=== PATIENT | female | born 1980 | race Caucasian/White ===

== ENCOUNTER 2017-11-19 10:37 | Emergency (ER) | payer BC ==
[2017-11-19 10:52] VITALS: TEMP 98.3; BMI 35.5
[2017-11-19] MEDS ORDERED: ACETAMINOPHEN 1000 MG/100 ML VIAL (NON FORMULARY) IVPB ONE (11:10)
[2017-11-19] MEDS ORDERED: SODIUM CHLORIDE 1,000 ML IV STA (11:10)
[2017-11-19] MEDS ORDERED: METOCLOPRAMIDE HCL INJECTION 10 MG/2 ML VIAL IVPB ONE (11:10)
--- NOTE | 2017-11-19 11:20 | PDOC ---
History of Present Illness - General Chief Complaint: Back Pain Stated Complaint: BACK PAIN Time Seen by Provider: 11/19/17 10:59 History Source: Patient - History of Present Illness Occurred: reports: this morning Severity: reports: severe Pain Location: reports: back Past History - Past Medical History Allergies/Adverse Reactions: Allergies Allergy/AdvReac Type Severity Reaction Status Date / Time No Known Allergies Allergy Verified 11/19/17 06:35 Home Medications: Ambulatory Orders Citalopram Hydrobromide [Citalopram HBr] 10 mg PO DAILY 11/19/17 Ferrous Sulfate [Iron] 1 tab PO DAILY 11/19/17 Vit/Iron Fum/Folic AC [ Tablet] 1 tab PO DAILY 11/19/17 COPD: No - Suicide/Smoking/Psychosocial Hx Smoking History: Former smoker Have you smoked in the past 12 months: No Information on smoking cessation initiated: No Hx Alcohol Use: No Drug/Substance Use Hx: No Review of Systems - Review of Systems Constitutional: No: Chills, Fever, Unexplained wgt Loss Respiratory: No: Shortness of Breath Cardiac (ROS): No: Chest Pain, Lightheadedness, Palpitations, Syncope ABD/GI: Yes: Nausea, Vomiting. No: Abdominal cramping : No: Burning, Dysuria, Discharge, Hematuria Musculoskeletal: Yes: Back Pain. No: Neck Pain Neurological: No: Numbness, Tingling, Weakness *Physical Exam - Vital Signs Last Vital Signs Temp Pulse Resp BP Pulse Ox 98.3 F 78 18 95/59 98 11/19/17 10:48 11/19/17 10:48 11/19/17 10:48 11/19/17 10:48 11/19/17 10:48 - Physical Exam Comments: 11/19/17 11:24 Pt appears very uncomfortable, currently attempting to find comfortable position on stretcher General Appearance: Yes: Moderate Distress HEENT: positive: EOMI, Normal Voice Neck: positive: Supple Respiratory/Chest: positive: Lungs Clear, Normal Breath Sounds. negative: Respiratory Distress Cardiovascular: positive: Regular Rate, S1, S2 Gastrointestinal/Abdominal: negative: Tender Musculoskeletal: positive: Vertebral Tenderness (to L mid/lower back). negative : CVA Tenderness Extremity: positive: Normal Inspection Integumentary: positive: Dry, Warm Neurologic: positive: Fully Oriented, Alert, Normal Mood/Affect Medical Decision Making - Medical Decision Making 11/19/17 11:13 7-year-old female, , approximately 37 weeks by dates here with severe, throbbing left lower back pain. Patient states back pain started this a.m. and worse with movement. Also reports multiple episodes of nausea, vomiting. No dysuria, hematuria, fever or chills. States she's had similar pain throughout the , but not this severe. No b/b incontinence, saddle anesthesia or LE weakness. Patient was seen on L&D floor this a.m. with well-appearing fetus on ultrasound. Renal ultrasound also done and demonstrated mild left renal hydro with no renal stone seen bilaterally. Also had blood work done which was unremarkable. Urine negative for nitrates or leuks but shows 1+ ketone, 1+ protein and 3+ glucose. Blood glucose 172. Pt was given one dose of stadol and states did improve once IV was in progress but that once med was completed, pain returned. Also given a dose of phenergan, which did relieve nausea but states she still feels nauseous with certain movements. States only other complications during this in polyhydramniosis. Follows up with OB elsewhere See exam LBP during 3rd trimester Possibly MSK given hx, no red flags at this time, i.e e/o infxn, neuro deficits , no recent epidural and no h/o imunosuppression UA neg for infection this am Mild L hydro w/ no stones on US this am Sheldon very uncomfortable in ED, BP 95/59 (possibly due to dehydration 2/2 n/v, of note 1+ ketone on urine this am) -pain control in ED -IVF -reglan -reassess 11/19/17 14:08 Pt feeling significantly better with meds. Able to tolerate po at this time. BP remains 90s/50s despite 1L IVF. BP not low at baseline per pt. Will continue to IV hydrate and discuss disposition with ER attending. At this time, pt signed out to Dr Sanders *DC/Admit/Observation/Transfer Diagnosis at time of Disposition: Back pain affecting Qualifiers: Trimester: third trimester Qualified Code(s): O99.89 - Other specified diseases and conditions complicating , childbirth and the puerperium Nausea & vomiting Qualifiers: Vomiting type: unspecified Vomiting Intractability: non-intractable Qualified Code(s): R11.2 - Nausea with vomiting, unspecified - Referrals Referrals: Jeffery Velasco MD [Primary Care Provider] - - Patient Instructions - Post Discharge Activity
[2017-11-19] MEDS ORDERED: ACETAMINOPHEN INJECTION 100 ML IVPB ONE (11:48)
[2017-11-19] MEDS ORDERED: METOCLOPRAMIDE HCL INJECTION 10 MG/2 ML VIAL ONE (11:48)
[2017-11-19] MEDS ORDERED: SODIUM CHLORIDE 0.9% 500 ML INFUS.BAG IV ONE (14:19)
--- NOTE | 2017-11-19 15:05 | PDOC ---
*Physical Exam - Vital Signs Last Vital Signs Temp Pulse Resp BP Pulse Ox 98.3 F 75 20 97/59 97 11/19/17 10:48 11/19/17 13:35 11/19/17 13:35 11/19/17 13:35 11/19/17 13:35 - Physical Exam General Appearance: Yes: Nourished, Appropriately Dressed Neck: positive: Trachea midline, Supple Respiratory/Chest: positive: Lungs Clear, Normal Breath Sounds Cardiovascular: positive: Regular Rate, S1, S2 ED Treatment Course - Medications Given in the ED: ED Medications Discontinued Medications Generic Name Dose Route Start Last Admin Trade Name Gita PRN Reason Stop Dose Admin Acetaminophen 1,000 mg 11/19/17 11:10 11/19/17 11:45 Ofirmev Injection - IVPB 11/19/17 11:11 1,000 mg ONCE ONE Administration Sodium Chloride 1,000 mls @ 1,000 mls/hr 11/19/17 11:10 11/19/17 12:00 Normal Saline - IV 11/19/17 12:09 1,000 mls/hr ASDIR STA Administration Metoclopramide HCl 10 mg 11/19/17 11:10 11/19/17 12:00 Reglan Injection - IVPB 11/19/17 11:11 10 mg ONCE ONE Administration Medical Decision Making - Medical Decision Making 11/19/17 15:04 Patient signed out by ISAAK Nelson and under the care of Dr. Cedeno (Attending) 37 year old female @ 37 weeks gestation evaluated and treated for back pain. Cleared by L&D prior to presentation. Now being evaluated for hypotension. Most recent BP 97/59. Patient notes decreased PO intake, UA showed 1+ ketones. Will give additional 1 L IV NS and reassess. Back pain resolved. 11/19/17 16:01 Repeat BP 102/54. Patient discharged home with strict instruction to keep previously scheduled full stack java developer appointment for Wednesday (11/22). I discussed the physical exam findings, ancillary test results and final diagnoses with the patient. I answered all of the patient's questions. The patient was satisfied with the care received and felt comfortable with the discharge plan and treatment plan. The patient will return to the Emergency Department with any new, persistent or worsening symptoms. *DC/Admit/Observation/Transfer Diagnosis at time of Disposition: Back pain affecting Qualifiers: Trimester: third trimester Qualified Code(s): O99.89 - Other specified diseases and conditions complicating , childbirth and the puerperium Nausea & vomiting Qualifiers: Vomiting type: unspecified Vomiting Intractability: non-intractable Qualified Code(s): R11.2 - Nausea with vomiting, unspecified - Discharge Dispostion Disposition: HOME Condition at time of disposition: Good Decision to Admit order: No - Prescriptions Prescriptions: Acetaminophen [Tylenol] 325 mg PO BID 7 Days #14 capsule Ondansetron HCl [Zofran] 4 mg PO BID #4 tablet - Referrals Referrals: Jeffery Velasco MD [Primary Care Provider] - - Patient Instructions Printed Discharge Instructions: DI for Low Back Pain Additional Instructions: Please follow up with your full stack java developer in the next 24-48 hours. A prescription for Tylenol and Zofran (an anti nausea medication) has been sent to your pharmacy. Increase your fluid intake (water) over the next 2-3 days. Return to the Emergency Department for any new/worsening/concerning symptoms. - Post Discharge Activity
[2017-11-19 15:53] VITALS: BP 102/54; PULSE 81
== END 2017-11-19 17:11 | disposition home or self-care (01) ==
LOC: JER 10:37
PROC: 3E0337Z Introduction of Electrolytic and Water Balance Substance into Peripheral Vein, Percutaneous Approach (ICD-10-PCS; principal; 2017-11-19)
PROC: 3E033NZ Introduction of Analgesics, Hypnotics, Sedatives into Peripheral Vein, Percutaneous Approach (ICD-10-PCS; 2017-11-19)
PROC: 3E033GC Introduction of Other Therapeutic Substance into Peripheral Vein, Percutaneous Approach (ICD-10-PCS; 2017-11-19)
DX: O99.89 Other specified diseases and conditions complicating pregnancy, childbirth and the puerperium (principal); Z3A.37 37 weeks gestation of pregnancy; R11.2 Nausea with vomiting, unspecified; Z87.891 Personal history of nicotine dependence
CPT/HCPCS: 99283-25; J0131; J7030